=== PATIENT | male | born 1960 | race Caucasian/White ===

== ENCOUNTER 2020-03-27 11:14 | Inpatient (IN) ==
[2020-03-27] MEDS ORDERED: 0.9 % Sodium Chloride 1,000 ML IVC ONE ×2 (11:32→12:48)
[2020-03-27] MEDS ORDERED: VANCOMYCIN IVPB ONE (11:58)
[2020-03-27] MEDS ORDERED: Piperacillin/Tazobactam 3.375 GM in 0.9 % Sodium Chloride Mini Bag 100 ML IVPB ONE (11:58)
[2020-03-27 12:03] LABS: Basophils % 0.3 %; Eosinophils # 0.1 K/mcL (0.0-0.6); Eosinophils % 0.6 %; Hematocrit 29.2 % (37.5-50.1); Hemoglobin 10.1 g/dL (12.9-16.9); Immature Granulocytes % 0.7 % (0-4); Lymphocytes # 3.1 K/mcL (0.6-4.6); Lymphocytes % 30.6 %; Mean Corpuscular HGB Conc 34.6 g/dL (31.6-35.5); Mean Corpuscular Hemoglobin 38.3 pg (28.0-33.3); Mean Corpuscular Volume 110.6 fL (83.0-100.0); Mean Platelet Volume 10.4 fL (9.4-12.4); Monocytes % 6.4 %; Neutrophils # 6.2 K/mcL (1.6-8.9); Platelet Count 109 K/mcL (140-400); Red Blood Count 2.64 M/mcL (4.19-5.50); Red Cell Distribution Width 14.6 % (11.5-14.5); Segmented Neutrophils % 61.4 %; White Blood Count 10.1 K/mcL (4.3-11.1)
[2020-03-27 12:11] LABS: Activated Partial Thrombo Time 47.5 Seconds (26.0-36.0)
[2020-03-27 12:13] LABS: Monocytes # 0.7 K/mcL (0.0-1.3)
[2020-03-27 12:19] LABS: Bilirubin,Urine Negative (Negative); Blood,Urine Small (Negative); Clarity,Urine Ex.Turbid (Clear); Color,Urine Yellow (Yellow); Glucose,Urine (UA) Normal (Normal); Ketones,Urine Negative (Negative); Leukocyte Esterase,Urine Large (Negative); Nitrite,Urine Negative (Negative); Protein,Urine >=300 mg/dL (Neg-Trace); Specific Gravity,Urine 1.011 (1.010-1.025); Urobilinogen,Urine Normal (Normal)
[2020-03-27] MEDS ORDERED: Vancomycin 1,500 MG/265 ML IV.SOLN IVPB ONE (12:19)
[2020-03-27 12:20] LABS: INR 5.7; Prothrombin Time 62.9 Seconds (9.4-12.1)
[2020-03-27 12:21] LABS: Anisocytosis 1+ (Not Present); Macrocytosis Present (Not Present); Platelet Estimate Slight Decrease (Normal)
[2020-03-27 12:24] LABS: Calcium 8.1 mg/dL (8.6-10.3); Magnesium 1.4 mg/dL (1.6-2.6); Potassium 2.8 mEq/L (3.5-5.1)
[2020-03-27 12:26] LABS: WBC,Urine 30-50 per hpf (0-3)
[2020-03-27 12:27] LABS: Bacteria,Urine Present per hpf (None-Few); RBC,Urine Present per hpf (0-3); Squamous Epithelial Cell,Urine Present per hpf (None-Few)
[2020-03-27] MEDS ORDERED: D5% in Water 1,000 ML IVC PRN (14:19)
[2020-03-27] MEDS ORDERED: Dextrose Gel 15 GM/37.5 ML TUBE PO PRN ×2 (14:19)
[2020-03-27] MEDS ORDERED: *HR* Dextrose 50 % in Water (Vial) 50 ML VIAL IVP PRN (14:19)
[2020-03-27] MEDS ORDERED: *HR* HYDROcodone/Acet 5/325 mg TABLET PO PRN (14:19)
[2020-03-27] MEDS ORDERED: Naloxone 0.4 MG/ML INJ IVP PRN (14:19)
[2020-03-27] MEDS ORDERED: Ondansetron 4 MG/2 ML VIAL IVP PRN (14:19)
[2020-03-27] MEDS ORDERED: *HR* OxyCODONE Immed Rel 5 MG TABLET PO PRN (14:19)
[2020-03-27] MEDS ORDERED: Potassium Chloride 40 MEQ, Lidocaine 1% 2 ML in 0.9 % Sodium Chloride 500 ML IVPB ONE (14:21)
[2020-03-27] MEDS: Acetaminophen 325 MG TABLET PO PRN (20:26)
[2020-03-27] MEDS: 0.9 % Sodium Chloride 1,000 ML IVC SCH (20:27)
[2020-03-27] MEDS ORDERED: Insulin DETEMIR 100 UNIT/ML X5UNITS SQ SCH (21:00)
[2020-03-27] MEDS: Nicotine 21 MG PATCH.TD24 TD SCH (21:56)
[2020-03-27] MEDS: Insulin LISPRO 300 UNITS/3 ML VIAL SQ SCH (21:56)
[2020-03-28] MEDS: Piperacillin/Tazobactam 3.375 GM in 0.9 % Sodium Chloride Mini Bag 100 ML IVPB SCH ×5 (04:00→20:52)
[2020-03-28] MEDS: Nicotine 21 MG PATCH.TD24 TD SCH (05:38)
[2020-03-28 05:55] LABS: Basophils % 0.3 %; Eosinophils # 0.1 K/mcL (0.0-0.6); Eosinophils % 0.7 %; Hematocrit 31.7 % (37.5-50.1); Hemoglobin 10.4 g/dL (12.9-16.9); Immature Granulocytes % 0.7 % (0-4); Lymphocytes # 3.9 K/mcL (0.6-4.6); Lymphocytes % 42.2 %; Mean Corpuscular HGB Conc 32.8 g/dL (31.6-35.5); Mean Corpuscular Hemoglobin 37.5 pg (28.0-33.3); Mean Corpuscular Volume 114.4 fL (83.0-100.0); Mean Platelet Volume 10.5 fL (9.4-12.4); Monocytes # 0.4 K/mcL (0.0-1.3); Monocytes % 4.5 %; Neutrophils # 4.8 K/mcL (1.6-8.9); Platelet Count 136 K/mcL (140-400); Red Blood Count 2.77 M/mcL (4.19-5.50); Segmented Neutrophils % 51.6 %; White Blood Count 9.2 K/mcL (4.3-11.1)
[2020-03-28 06:01] LABS: INR 4.4; Prothrombin Time 48.5 Seconds (9.4-12.1)
[2020-03-28 06:10] LABS: Calcium 8.1 mg/dL (8.6-10.3); Phosphorous 2.4 mg/dL (2.7-4.5); Potassium 3.2 mEq/L (3.5-5.1)
[2020-03-28] MEDS: Insulin LISPRO 300 UNITS/3 ML VIAL SQ SCH ×3 (08:07→17:12)
[2020-03-28 08:08] LABS: Macrocytosis Present (Not Present)
[2020-03-28 08:09] LABS: Large Platelets Present (Not Present); Platelet Estimate Normal (Normal); Reactive Lymphocytes Present (Not Present); Toxic Granulation Present (Not Present)
[2020-03-28] MEDS: 0.9 % Sodium Chloride 1,000 ML IVC SCH (09:25)
[2020-03-28] MEDS ORDERED: Ringers Solution, Lactated 1,000 ML IVC ONE (11:24)
[2020-03-28] MEDS: Pregabalin 75 MG CAPSULE PO SCH ×2 (15:12→20:56)
[2020-03-28] MEDS: Methadone Oral Concentrate 50 MG/5 ML UDC PO SCH (15:13)
[2020-03-28] MEDS ORDERED: Piperacillin/Tazobactam 3.375 GM VIAL ONE (20:39)
[2020-03-29 05:28] LABS: Calcium 8.3 mg/dL (8.6-10.3); Potassium 3.7 mEq/L (3.5-5.1)
[2020-03-29 05:34] LABS: Hematocrit 25.6 % (37.5-50.1); Mean Corpuscular HGB Conc 33.2 g/dL (31.6-35.5); Mean Corpuscular Hemoglobin 36.8 pg (28.0-33.3); Mean Corpuscular Volume 110.8 fL (83.0-100.0); Mean Platelet Volume 10.5 fL (9.4-12.4); Platelet Count 107 K/mcL (140-400); Red Blood Count 2.31 M/mcL (4.19-5.50); Red Cell Distribution Width 15.2 % (11.5-14.5); White Blood Count 5.2 K/mcL (4.3-11.1)
[2020-03-29] MEDS: Piperacillin/Tazobactam 3.375 GM in 0.9 % Sodium Chloride Mini Bag 100 ML IVPB SCH ×3 (05:39→20:15)
[2020-03-29 05:54] LABS: Hemoglobin 8.5 g/dL (12.9-16.9)
[2020-03-29] MEDS: Insulin LISPRO 300 UNITS/3 ML VIAL SQ SCH ×3 (08:19→18:10)
[2020-03-29] MEDS ORDERED: Furosemide 40 MG TABLET PO SCH (09:00)
[2020-03-29] MEDS: Pregabalin 75 MG CAPSULE PO SCH ×3 (09:39→20:14)
[2020-03-29] MEDS: Methadone Oral Concentrate 50 MG/5 ML UDC PO SCH (09:39)
[2020-03-29] MEDS: Nicotine 21 MG PATCH.TD24 TD SCH (09:39)
[2020-03-29 09:53] LABS: INR 2.8; Prothrombin Time 31.3 Seconds (9.4-12.1)
[2020-03-29 14:13] LABS: Hematocrit 28.2 % (37.5-50.1); Hemoglobin 9.2 g/dL (12.9-16.9)
[2020-03-29] MEDS ORDERED: Warfarin perPT PO PRN (18:00)
[2020-03-29] MEDS ORDERED: *HR* Warfarin 2 MG TABLET PO ONE (18:00)
[2020-03-30 05:33] LABS: INR 2.5; Prothrombin Time 28.2 Seconds (9.4-12.1)
[2020-03-30 05:41] LABS: BUN/Creatinine Ratio 11 (6-26); Blood Urea Nitrogen 16 mg/dL (8-23); Carbon Dioxide 20 mEq/L (23-29); Chloride 116 mEq/L (98-107); Glucose 54 mg/dL (70-105); Magnesium 1.9 mg/dL (1.6-2.6); Osmolality,Calculated 291 (280-300); Potassium 3.9 mEq/L (3.5-5.1); Sodium 141 mEq/L (136-145); eGFR For African Americans > 60 (> 60); eGFR For Non-African Americans 51 (> 60)
[2020-03-30] MEDS: Piperacillin/Tazobactam 3.375 GM in 0.9 % Sodium Chloride Mini Bag 100 ML IVPB SCH ×3 (06:01→21:45)
[2020-03-30 06:17] LABS: Hematocrit 25.7 % (37.5-50.1); Hemoglobin 8.2 g/dL (12.9-16.9); White Blood Count 5.2 K/mcL (4.3-11.1)
[2020-03-30 06:18] LABS: Mean Corpuscular Volume 116.8 fL (83.0-100.0)
[2020-03-30 06:20] LABS: Mean Corpuscular Hemoglobin 37.3 pg (28.0-33.3)
[2020-03-30 06:21] LABS: Mean Corpuscular HGB Conc 31.9 g/dL (31.6-35.5); Mean Platelet Volume 10.2 fL (9.4-12.4); Platelet Count 118 K/mcL (140-400); Red Cell Distribution Width 15.8 % (11.5-14.5)
[2020-03-30] MEDS: Insulin LISPRO 300 UNITS/3 ML VIAL SQ SCH ×3 (07:58→17:47)
[2020-03-30] MEDS ORDERED: Albumin 25% 25gram/100mL 25 GM/100 ML IV.SOLN IVPB ONE (08:18)
[2020-03-30] MEDS ORDERED: 0.9 % Sodium Chloride 500 ML IVC ONE (08:18)
[2020-03-30] MEDS: Pregabalin 75 MG CAPSULE PO SCH ×3 (09:03→21:45)
[2020-03-30] MEDS: Nicotine 21 MG PATCH.TD24 TD SCH (09:03)
[2020-03-30 09:50] LABS: Estimated Average Glucose 117 mg/dl
[2020-03-30] MEDS: Methadone Oral Concentrate 50 MG/5 ML UDC PO SCH (10:00)
[2020-03-30 10:07] LABS: % Iron Saturation 45 % (20-55); Creatine Kinase 152 Units/L (30-223); Iron 78 mcg/dL (65-175); Transferrin 123 mg/dL (203-362)
[2020-03-30 10:25] LABS: Ferritin 173 ng/mL (20-250)
[2020-03-30] MEDS ORDERED: Cyanocobalamin (B-12) 1,000 MCG/ML VIAL SQ ONE (11:24)
[2020-03-30] MEDS: Folic Acid 1 MG TABLET PO SCH (12:39)
[2020-03-30 12:54] LABS: Bilirubin,Urine Negative (Negative); Blood,Urine Moderate (Negative); Clarity,Urine Cloudy (Clear); Color,Urine Yellow (Yellow); Glucose,Urine (UA) Normal (Normal); Ketones,Urine Negative (Negative); Leukocyte Esterase,Urine Large (Negative); Nitrite,Urine Negative (Negative); Protein,Urine >=300 mg/dL (Neg-Trace); Specific Gravity,Urine 1.025 (1.010-1.025); Urobilinogen,Urine Normal (Normal)
[2020-03-30 13:03] LABS: Bacteria,Urine Moderate per hpf (None-Few); WBC,Urine TNTC per hpf (0-3)
[2020-03-30 13:04] LABS: Squamous Epithelial Cell,Urine Few per hpf (None-Few)
[2020-03-30 13:24] LABS: Potassium,Urine 22.1 mEq/L; Protein/Creatinine Ratio,Urine 2.08 mg/mg (0.00-0.20); Sodium, Urine 53.3 mEq/L
[2020-03-30] MEDS ORDERED: 0.9 % Sodium Chloride 1,000 ML IV ONE (16:07)
[2020-03-30] MEDS ORDERED: *HR* Warfarin 2 MG TABLET PO ONE (18:00)
[2020-03-31] MEDS: Hydrocortisone Sodium Succ 100 MG/2 ML VIAL IVP ONE ×2 (01:56→10:12)
[2020-03-31] MEDS: 0.9 % Sodium Chloride 500 ML IVC SCH ×5 (03:54→23:37)
[2020-03-31] MEDS: Piperacillin/Tazobactam 3.375 GM in 0.9 % Sodium Chloride Mini Bag 100 ML IVPB SCH ×3 (05:16→19:46)
[2020-03-31 06:05] LABS: INR 2.2; Prothrombin Time 24.4 Seconds (9.4-12.1)
[2020-03-31 06:11] LABS: Hematocrit 26.3 % (37.5-50.1); Hemoglobin 8.7 g/dL (12.9-16.9); Mean Corpuscular HGB Conc 33.1 g/dL (31.6-35.5); Mean Corpuscular Volume 114.8 fL (83.0-100.0); Mean Platelet Volume 10.2 fL (9.4-12.4); Platelet Count 122 K/mcL (140-400); Red Blood Count 2.29 M/mcL (4.19-5.50); Red Cell Distribution Width 15.5 % (11.5-14.5); White Blood Count 6.1 K/mcL (4.3-11.1)
[2020-03-31 06:36] LABS: BUN/Creatinine Ratio 11 (6-26); Blood Urea Nitrogen 14 mg/dL (8-23); Calcium 8.2 mg/dL (8.6-10.3); Carbon Dioxide 20 mEq/L (23-29); Chloride 114 mEq/L (98-107); Glucose 120 mg/dL (70-105); Osmolality,Calculated 290 (280-300); Potassium 4.4 mEq/L (3.5-5.1); Sodium 139 mEq/L (136-145); eGFR For African Americans > 60 (> 60); eGFR For Non-African Americans 56 (> 60)
[2020-03-31] MEDS ORDERED: Hydrocortisone Sodium Succ 100 MG/2 ML VIAL IVP ONE (07:17)
[2020-03-31] MEDS: Pregabalin 75 MG CAPSULE PO SCH ×3 (08:36→19:46)
[2020-03-31] MEDS: Insulin LISPRO 300 UNITS/3 ML VIAL SQ SCH ×3 (10:09→17:08)
[2020-03-31] MEDS: Nicotine 21 MG PATCH.TD24 TD SCH (10:10)
[2020-03-31] MEDS: predniSONE 20 MG TABLET PO SCH (10:11)
[2020-03-31] MEDS: Folic Acid 1 MG TABLET PO SCH (10:12)
[2020-03-31 10:47] LABS: Thyroid Stimulating Hormone 2.333 mcIU/mL (0.340-5.600)
[2020-03-31] MEDS: Cyanocobalamin (B-12) 1,000 MCG/ML VIAL SQ SCH (12:45)
[2020-03-31] MEDS: Acetaminophen 325 MG TABLET PO PRN (12:58)
[2020-03-31] MEDS: Methadone Oral Concentrate 50 MG/5 ML UDC PO SCH (16:11)
[2020-03-31] MEDS ORDERED: *HR* Warfarin 2 MG TABLET PO ONE (18:04)
[2020-04-01] MEDS: 0.9 % Sodium Chloride 500 ML IVC SCH ×2 (04:35→10:02)
[2020-04-01] MEDS: Piperacillin/Tazobactam 3.375 GM in 0.9 % Sodium Chloride Mini Bag 100 ML IVPB SCH ×2 (04:35→12:33)
[2020-04-01 06:12] LABS: Hematocrit 25.7 % (37.5-50.1); Hemoglobin 8.6 g/dL (12.9-16.9); Mean Corpuscular HGB Conc 33.5 g/dL (31.6-35.5); Mean Corpuscular Hemoglobin 37.9 pg (28.0-33.3); Mean Corpuscular Volume 113.2 fL (83.0-100.0); Mean Platelet Volume 10.1 fL (9.4-12.4); Platelet Count 142 K/mcL (140-400); Red Blood Count 2.27 M/mcL (4.19-5.50); Red Cell Distribution Width 15.1 % (11.5-14.5); White Blood Count 8.1 K/mcL (4.3-11.1)
[2020-04-01 06:14] LABS: INR 2.2
[2020-04-01 06:29] LABS: BUN/Creatinine Ratio 13 (6-26); Blood Urea Nitrogen 16 mg/dL (8-23); Carbon Dioxide 22 mEq/L (23-29); Chloride 116 mEq/L (98-107); Glucose 107 mg/dL (70-105); Osmolality,Calculated 294 (280-300); Sodium 141 mEq/L (136-145); eGFR For African Americans > 60 (> 60); eGFR For Non-African Americans > 60 (> 60)
[2020-04-01] MEDS: Cyanocobalamin (B-12) 1,000 MCG/ML VIAL SQ SCH (10:02)
[2020-04-01] MEDS: Pregabalin 75 MG CAPSULE PO SCH ×2 (10:02→15:02)
[2020-04-01] MEDS: predniSONE 20 MG TABLET PO SCH (10:03)
[2020-04-01] MEDS: Folic Acid 1 MG TABLET PO SCH (10:03)
[2020-04-01] MEDS: Methadone Oral Concentrate 50 MG/5 ML UDC PO SCH (10:04)
[2020-04-01] MEDS: Nicotine 21 MG PATCH.TD24 TD SCH (10:04)
[2020-04-01] MEDS: Insulin LISPRO 300 UNITS/3 ML VIAL SQ SCH ×2 (10:13→12:34)
[2020-04-01 10:29] VITALS: BP 108/71
[2020-04-01] MEDS: Acetaminophen 325 MG TABLET PO PRN (11:30)
[2020-04-01] MEDS ORDERED: *HR* Warfarin 2 MG TABLET PO ONE (18:00)
== END 2020-04-01 17:54 | disposition home health service (06) | DRG 872 ==
LOC: EMEROOARM 11:14 → 3ANU 11:14 → SUATTDRO 17:11 → 3ANU 17:54
PROVIDERS: ADMIT Internal Medicine; ATTEND Internal Medicine

== ENCOUNTER 2020-09-23 10:17 | Inpatient (IN) ==
[2020-09-23] MEDS ORDERED: 0.9 % Sodium Chloride 1,000 ML ONE (11:00)
[2020-09-23] MEDS ORDERED: Ondansetron 4 MG/2 ML VIAL IVP ONE (11:01)
[2020-09-23] MEDS ORDERED: 0.9 % Sodium Chloride 1,000 ML IVC ONE (11:01)
[2020-09-23] MEDS ORDERED: Isovue-370 500 ML BOTTLE IVP ONE (11:13)
[2020-09-23 11:25] LABS: Basophils % 0.1 %; Eosinophils % 0.2 %; Hematocrit 44.4 % (37.5-50.1); Hemoglobin 15.1 g/dL (12.9-16.9); Immature Granulocytes % 0.4 % (0-4); Lymphocytes # 2.4 K/mcL (0.6-4.6); Lymphocytes % 17.3 %; Mean Corpuscular Hemoglobin 29.4 pg (28.0-33.3); Mean Corpuscular Volume 86.5 fL (83.0-100.0); Mean Platelet Volume 10.5 fL (9.4-12.4); Monocytes % 7.4 %; Neutrophils # 10.2 K/mcL (1.6-8.9); Platelet Count 257 K/mcL (140-400); Red Blood Count 5.13 M/mcL (4.19-5.50); Red Cell Distribution Width 13.3 % (11.5-14.5); Segmented Neutrophils % 74.6 %; White Blood Count 13.7 K/mcL (4.3-11.1)
[2020-09-23 12:02] LABS: Albumin 4.1 g/dL (3.5-5.7); Albumin/Globulin Ratio 0.9 (1.1-2.2); Bilirubin,Direct 0.1 mg/dL (0.0-0.2); Bilirubin,Indirect 0.5 mg/dL (0.0-1.0); Bilirubin,Total 0.6 mg/dL (0.3-1.0); Calcium 8.8 mg/dL (8.6-10.3); Globulin 4.6 g/dL (2.4-3.5); Potassium 3.1 mEq/L (3.5-5.1); Total Protein 8.7 g/dL (6.4-8.9)
[2020-09-23 12:17] LABS: Troponin I 0.04 ng/mL (< 0.04)
[2020-09-23] MEDS ORDERED: 0.9 % Sodium Chloride 1,000 ML IVC SCH (12:30)
[2020-09-23] MEDS ORDERED: *HR* Promethazine 25 MG/ML VIAL IM ONE (12:43)
[2020-09-23] MEDS ORDERED: Aspirin 81 MG TAB.CHEW PO ONE (13:54)
[2020-09-23 15:43] LABS: Bilirubin,Urine Negative (Negative); Blood,Urine Small (Negative); Clarity,Urine Ex.Turbid (Clear); Color,Urine Yellow (Yellow); Glucose,Urine (UA) Normal (Normal); Ketones,Urine Negative (Negative); Leukocyte Esterase,Urine Large (Negative); Nitrite,Urine Negative (Negative); PH,Urine 5.5 pH Units (5.0-8.0); Protein,Urine 30 mg/dL (Neg-Trace); Specific Gravity,Urine 1.014 (1.010-1.025); Urobilinogen,Urine Normal (Normal)
[2020-09-23 16:10] LABS: Bacteria,Urine Present per hpf (None-Few); RBC,Urine Present per hpf (0-3); Squamous Epithelial Cell,Urine Present per hpf (None-Few); WBC,Urine TNTC per hpf (0-3)
[2020-09-23] MEDS ORDERED: Naloxone 0.4 MG/ML INJ IVP PRN (16:41)
[2020-09-23] MEDS ORDERED: cefTRIAXone 1,000 MG in Water for inj. (sterile) 10 ML IVP ONE (16:57)
[2020-09-23] MEDS ORDERED: Dextrose Gel 15 GM/37.5 ML TUBE PO PRN ×2 (17:44)
[2020-09-23] MEDS ORDERED: D5% in Water 1,000 ML IVC PRN (17:44)
[2020-09-23] MEDS: Nicotine 14 MG PATCH.TD24 TD SCH (18:30)
[2020-09-23] MEDS: Pantoprazole 40 MG VIAL IVP SCH (18:30)
[2020-09-23] MEDS: Ondansetron 4 MG/2 ML VIAL IVP PRN (18:30)
[2020-09-23] MEDS: 0.9 % Sodium Chloride 1,000 ML IVC SCH (18:31)
[2020-09-23 18:32] LABS: INR 3.2; Prothrombin Time 35.4 Seconds (9.4-12.1)
[2020-09-23 18:42] LABS: Magnesium 2.3 mg/dL (1.6-2.6); Phosphorous 6.3 mg/dL (2.7-4.5)
[2020-09-23] MEDS: Insulin LISPRO 300 UNITS/3 ML VIAL SUBQ SCH (21:26)
[2020-09-24] MEDS: Piperacillin/Tazobactam 3.375 GM in 0.9 % Sodium Chloride Mini Bag 100 ML IVPB SCH ×2 (05:41→17:04)
[2020-09-24] MEDS: Pantoprazole 40 MG VIAL IVP SCH ×2 (05:42→17:03)
[2020-09-24] MEDS: 0.9 % Sodium Chloride 1,000 ML IVC SCH ×3 (05:42→22:36)
[2020-09-24 05:46] LABS: Basophils % 0.3 %; Eosinophils # 0.1 K/mcL (0.0-0.6); Hematocrit 35.6 % (37.5-50.1); Immature Granulocytes % 0.3 % (0-4); Lymphocytes # 3.8 K/mcL (0.6-4.6); Lymphocytes % 36.5 %; Mean Corpuscular HGB Conc 33.1 g/dL (31.6-35.5); Mean Corpuscular Hemoglobin 30.3 pg (28.0-33.3); Mean Corpuscular Volume 91.3 fL (83.0-100.0); Mean Platelet Volume 10.9 fL (9.4-12.4); Monocytes # 0.8 K/mcL (0.0-1.3); Monocytes % 7.8 %; Neutrophils # 5.6 K/mcL (1.6-8.9); Platelet Count 172 K/mcL (140-400); Red Cell Distribution Width 13.6 % (11.5-14.5); Segmented Neutrophils % 54.1 %; White Blood Count 10.3 K/mcL (4.3-11.1)
[2020-09-24 06:01] LABS: Albumin 3.4 g/dL (3.5-5.7); Bilirubin,Total 0.4 mg/dL (0.3-1.0); Calcium 7.9 mg/dL (8.6-10.3); Globulin 3.3 g/dL (2.4-3.5); Potassium 2.5 mEq/L (3.5-5.1); Total Protein 6.7 g/dL (6.4-8.9)
[2020-09-24 06:30] LABS: Hemoglobin 11.8 g/dL (12.9-16.9)
[2020-09-24] MEDS ORDERED: 0.9 % Sodium Chloride 500 ML IVC ONE (08:20)
[2020-09-24] MEDS: Cyanocobalamin (B-12) 1,000 MCG TABLET PO SCH (08:34)
[2020-09-24] MEDS: Folic Acid 1 MG TABLET PO SCH (08:35)
[2020-09-24] MEDS: Insulin LISPRO 300 UNITS/3 ML VIAL SUBQ SCH ×4 (08:35→21:04)
[2020-09-24] MEDS: Nicotine 14 MG PATCH.TD24 TD SCH (08:38)
[2020-09-24] MEDS ORDERED: Methadone Oral Concentrate 50 MG/5 ML UDC PO SCH (09:00)
[2020-09-24] MEDS ORDERED: Potassium Chloride 40 MEQ, Lidocaine 1% 2 ML in 0.9 % Sodium Chloride 500 ML IVPB ONE (09:25)
[2020-09-24] MEDS ORDERED: Morphine Sulfate 2 MG/ML SYRINGE IVP ONE (11:21)
[2020-09-24] MEDS ORDERED: Perflutren Lipid Microsphere 1.3 ML in 0.9 % Sodium Chloride 8.7 ML IVP PRN (13:43)
[2020-09-24 15:55] LABS: Calcium 8.1 mg/dL (8.6-10.3); Potassium 3.4 mEq/L (3.5-5.1)
[2020-09-24 17:31] LABS: INR 3.4; Prothrombin Time 38.1 Seconds (9.4-12.1)
[2020-09-24] MEDS: Ondansetron 4 MG/2 ML VIAL IVP PRN (19:37)
[2020-09-24] MEDS: *HR* Dextrose 50 % in Water (Vial) 50 ML VIAL IVP PRN (21:08)
[2020-09-24 21:53] LABS: Sodium, Urine 74.4 mEq/L
[2020-09-25 02:45] LABS: Hemoglobin 11.8 g/dL (12.9-16.9); Mean Corpuscular HGB Conc 31.9 g/dL (31.6-35.5); Mean Corpuscular Hemoglobin 29.7 pg (28.0-33.3); Mean Corpuscular Volume 93.2 fL (83.0-100.0); Mean Platelet Volume 10.8 fL (9.4-12.4); Platelet Count 156 K/mcL (140-400); Red Blood Count 3.97 M/mcL (4.19-5.50); Red Cell Distribution Width 13.4 % (11.5-14.5); White Blood Count 8.5 K/mcL (4.3-11.1)
[2020-09-25 02:51] LABS: INR 3.3; Prothrombin Time 36.6 Seconds (9.4-12.1)
[2020-09-25 03:03] LABS: Albumin 3.4 g/dL (3.5-5.7); Bilirubin,Total 0.5 mg/dL (0.3-1.0); Calcium 8.2 mg/dL (8.6-10.3); Globulin 3.5 g/dL (2.4-3.5); Potassium 3.4 mEq/L (3.5-5.1); Total Protein 6.9 g/dL (6.4-8.9)
[2020-09-25] MEDS: *HR* Dextrose 50 % in Water (Vial) 50 ML VIAL IVP PRN (03:39)
[2020-09-25] MEDS: Pantoprazole 40 MG VIAL IVP SCH ×2 (05:23→21:30)
[2020-09-25] MEDS: Piperacillin/Tazobactam 3.375 GM in 0.9 % Sodium Chloride Mini Bag 100 ML IVPB SCH ×2 (05:23→21:33)
[2020-09-25] MEDS: 0.9 % Sodium Chloride 1,000 ML IVC SCH ×3 (05:26→23:41)
[2020-09-25] MEDS: Insulin LISPRO 300 UNITS/3 ML VIAL SUBQ SCH ×4 (07:42→21:32)
[2020-09-25] MEDS: Nicotine 14 MG PATCH.TD24 TD SCH (07:46)
[2020-09-25] MEDS: Folic Acid 1 MG TABLET PO SCH (07:47)
[2020-09-25] MEDS: Cyanocobalamin (B-12) 1,000 MCG TABLET PO SCH (07:47)
[2020-09-25] MEDS: Ondansetron 4 MG/2 ML VIAL IVP PRN (09:24)
[2020-09-25 09:53] LABS: INR 3.2; Prothrombin Time 36.3 Seconds (9.4-12.1)
[2020-09-25] MEDS ORDERED: 0.9 % Sodium Chloride 250 ML ONE ×2 (10:51→12:20)
[2020-09-25 15:13] LABS: INR 2.4; Prothrombin Time 26.6 Seconds (9.4-12.1)
[2020-09-25] MEDS ORDERED: *HR* Propofol 200 MG/20 ML VIAL IVP ONE (15:30)
[2020-09-25] MEDS ORDERED: Lidocaine HCL 4 ML Topical Solution (Laryng-O-Jet Kit Sterile Pak) TP ONE (15:30)
[2020-09-25] MEDS ORDERED: *HR* Rocuronium Bromide 50 MG/5 ML VIAL ONE ×2 (15:30→17:57)
[2020-09-25] MEDS ORDERED: *HR* Midazolam HCl 2 MG/2 ML VIAL ONE ×2 (15:30→19:03)
[2020-09-25] MEDS ORDERED: Ondansetron 4 MG/2 ML VIAL ONE ×2 (15:30→18:05)
[2020-09-25] MEDS ORDERED: Lidocaine -MPF 2% 2 ML VIAL ONE (15:30)
[2020-09-25] MEDS ORDERED: *HR* FentaNYL (PF) 100 MCG/2 ML VIAL ONE ×2 (15:30→16:51)
[2020-09-25] MEDS ORDERED: *HR* Succinylcholine 200 MG/10 ML VIAL IVP ONE (15:30)
[2020-09-25] MEDS: Methadone Oral Concentrate 50 MG/5 ML UDC PO SCH ×2 (15:36→20:28)
[2020-09-25] MEDS ORDERED: CefOXitin 1,000 MG VIAL ONE ×2 (15:38→17:30)
[2020-09-25] MEDS ORDERED: Piperacillin/Tazobactam 3.375 GM in 0.9 % Sodium Chloride Mini Bag 100 ML IVPB SCH (16:00)
[2020-09-25] MEDS ORDERED: Hydrocortisone Sodium Succ 100 MG/2 ML VIAL ONE (16:17)
[2020-09-25] MEDS ORDERED: Isovue-300 50ML VIAL ONE (16:28)
[2020-09-25] MEDS ORDERED: *HR* Phenylephrine 10 MG/ML VIAL ONE (16:45)
[2020-09-25] MEDS ORDERED: CefOXitin 2,000 MG VIAL ONE (16:49)
[2020-09-25] MEDS ORDERED: Artificial Tears SOLN 15 ML BOTTLE BOTH EYES PRN (19:27)
[2020-09-25] MEDS: FentaNYL (PF) 1,000 MCG/100 ML IV.SOLN IVC SCH (20:00)
[2020-09-25 20:33] LABS: Hematocrit 34.9 % (37.5-50.1); Hemoglobin 11.3 g/dL (12.9-16.9)
[2020-09-25 20:39] LABS: VBG Ionized Calcium 1.03 mmol/L (1.15-1.35)
[2020-09-25 20:52] LABS: Calcium 8.2 mg/dL (8.6-10.3); Magnesium 1.8 mg/dL (1.6-2.6); Phosphorous 1.6 mg/dL (2.7-4.5); Potassium 3.6 mEq/L (3.5-5.1)
[2020-09-25 21:20] LABS: ABG Base Excess -1 mEq/L (-2 to 3); ABG HCO3 25 mEq/L (21-27); ABG Oxygen Saturation 98 % (95-98); ABG PCO2 46 mmHg (35-45); ABG PH 7.34 pH Units (7.32-7.45); ABG PO2 115 mmHg (85-104); ABG TCO2 27 mEq/L (20-26); Blood Gas Modality ASSIST CONTROL; Blood Gas VT 500 cc
[2020-09-25] MEDS: Chlorhexidine Rinse 15 ML MOUTHWASH MM SCH (21:28)
[2020-09-25] MEDS: Calcium Gluconate 1gm/50mL 1 GM/50 ML BAG IVPB SCH ×2 (21:29→22:38)
[2020-09-25] MEDS: Ringers Solution, Lactated 1,000 ML IVC SCH (21:32)
[2020-09-25] MEDS: Artificial Tears SOLN 15 ML BOTTLE BOTH EYES SCH ×2 (21:32→23:41)
[2020-09-25 22:03] LABS: INR 1.9; Prothrombin Time 22.1 Seconds (9.4-12.1)
[2020-09-25] MEDS: Dexmedetomidine HCl 400 MCG/100 ML MLS IVC SCH (22:39)
[2020-09-26] MEDS: FentaNYL (PF) 1,000 MCG/100 ML IV.SOLN IVC SCH (00:09)
[2020-09-26 04:05] LABS: Basophils % 0.3 %; Eosinophils % 0.2 %; Hematocrit 27.9 % (37.5-50.1); Immature Granulocytes % 0.3 % (0-4); Lymphocytes # 1.2 K/mcL (0.6-4.6); Lymphocytes % 18.1 %; Mean Corpuscular HGB Conc 33.7 g/dL (31.6-35.5); Mean Corpuscular Hemoglobin 30.8 pg (28.0-33.3); Mean Corpuscular Volume 91.5 fL (83.0-100.0); Mean Platelet Volume 10.9 fL (9.4-12.4); Monocytes # 0.4 K/mcL (0.0-1.3); Monocytes % 5.7 %; Neutrophils # 4.9 K/mcL (1.6-8.9); Platelet Count 126 K/mcL (140-400); Red Blood Count 3.05 M/mcL (4.19-5.50); Red Cell Distribution Width 13.9 % (11.5-14.5); Segmented Neutrophils % 75.4 %; White Blood Count 6.5 K/mcL (4.3-11.1)
[2020-09-26 04:06] LABS: Hemoglobin 9.4 g/dL (12.9-16.9)
[2020-09-26 04:09] LABS: VBG Ionized Calcium 0.94 mmol/L (1.15-1.35)
[2020-09-26 04:11] LABS: Prothrombin Time 22.5 Seconds (9.4-12.1)
[2020-09-26 04:27] LABS: BUN/Creatinine Ratio 11 (6-26); Blood Urea Nitrogen 16 mg/dL (8-23); Calcium 7.9 mg/dL (8.6-10.3); Carbon Dioxide 27 mEq/L (23-29); Chloride 101 mEq/L (98-107); Glucose 150 mg/dL (70-105); Magnesium 1.9 mg/dL (1.6-2.6); Osmolality,Calculated 294 (280-300); Phosphorous 3.6 mg/dL (2.7-4.5); Potassium 4.1 mEq/L (3.5-5.1); Sodium 140 mEq/L (136-145); eGFR For African Americans > 60 (> 60); eGFR For Non-African Americans 51 (> 60)
[2020-09-26 05:08] LABS: ABG Base Excess 2 mEq/L (-2 to 3); ABG HCO3 27 mEq/L (21-27); ABG Oxygen Saturation 95 % (95-98); ABG PCO2 41 mmHg (35-45); ABG PH 7.42 pH Units (7.32-7.45); ABG PO2 74 mmHg (85-104); ABG TCO2 28 mEq/L (20-26); Blood Gas Modality ASSIST CONTROL; Blood Gas VT 450 cc
[2020-09-26] MEDS: Artificial Tears SOLN 15 ML BOTTLE BOTH EYES SCH ×5 (05:14→20:25)
[2020-09-26] MEDS: Piperacillin/Tazobactam 3.375 GM in 0.9 % Sodium Chloride Mini Bag 100 ML IVPB SCH ×3 (05:14→20:25)
[2020-09-26] MEDS: FentaNYL (PF) 2,500 MCG/50 ML IV.SOLN IVC SCH ×2 (05:15→14:05)
[2020-09-26] MEDS: Ringers Solution, Lactated 1,000 ML IVC SCH ×2 (05:16→08:20)
[2020-09-26] MEDS: Pantoprazole 40 MG VIAL IVP SCH ×2 (05:16→17:00)
[2020-09-26] MEDS: Calcium Gluconate 1gm/50mL 1 GM/50 ML BAG IVPB SCH ×2 (06:10→06:44)
[2020-09-26] MEDS ORDERED: 0.9 % Sodium Chloride 500 ML ONE (07:39)
[2020-09-26] MEDS: Insulin LISPRO 300 UNITS/3 ML VIAL SUBQ SCH ×4 (08:33→19:42)
[2020-09-26] MEDS: Folic Acid 1 MG TABLET PO SCH (08:34)
[2020-09-26] MEDS: Cyanocobalamin (B-12) 1,000 MCG TABLET PO SCH (08:34)
[2020-09-26] MEDS: Methadone Oral Concentrate 50 MG/5 ML UDC PO SCH (08:34)
[2020-09-26] MEDS: Chlorhexidine Rinse 15 ML MOUTHWASH MM SCH ×2 (08:47→20:25)
[2020-09-26] MEDS: Nicotine 14 MG PATCH.TD24 TD SCH (08:47)
[2020-09-26] MEDS ORDERED: Perflutren Lipid Microsphere 1.3 ML in 0.9 % Sodium Chloride 8.7 ML IVP PRN (09:47)
[2020-09-26] MEDS ORDERED: D10% in Water 500 ML IVC PRN (10:30)
[2020-09-26 10:33] LABS: Alanine Aminotransferase 18 Units/L (7-52); Albumin/Globulin Ratio 1.1 (1.1-2.2); Alkaline Phosphatase 41 Units/L (34-104); Aspartate Amino Transferase 19 Units/L (13-39); Bilirubin,Direct 0.2 mg/dL (0.0-0.2); Bilirubin,Indirect 0.5 mg/dL (0.0-1.0); Bilirubin,Total 0.7 mg/dL (0.3-1.0); Globulin 2.8 g/dL (2.4-3.5); Total Protein 5.8 g/dL (6.4-8.9)
[2020-09-26 13:36] LABS: VBG Ionized Calcium 1.18 mmol/L (1.15-1.35)
[2020-09-26 13:51] LABS: BUN/Creatinine Ratio 11 (6-26); Blood Urea Nitrogen 14 mg/dL (8-23); Calcium 8.5 mg/dL (8.6-10.3); Carbon Dioxide 29 mEq/L (23-29); Chloride 104 mEq/L (98-107); Glucose 131 mg/dL (70-105); Magnesium 2.3 mg/dL (1.6-2.6); Osmolality,Calculated 294 (280-300); Phosphorous 1.8 mg/dL (2.7-4.5); Potassium 3.4 mEq/L (3.5-5.1); Sodium 141 mEq/L (136-145); eGFR For African Americans > 60 (> 60); eGFR For Non-African Americans 55 (> 60)
[2020-09-26] MEDS ORDERED: Potassium Phosphate 44 MEQ in 0.9 % Sodium Chloride 250 ML IVPB ONE (14:50)
[2020-09-26] MEDS ORDERED: Clinimix E 5%-15% SOLUTION 2,000 ML with MVI, adult with vitamin K 10 ML IVC SCH (17:00)
[2020-09-26] MEDS: Dexmedetomidine HCl 400 MCG/100 ML MLS IVC SCH (17:00)
[2020-09-26] MEDS: 0.9 % Sodium Chloride 1,000 ML IVC SCH (20:56)
[2020-09-27] MEDS: Artificial Tears SOLN 15 ML BOTTLE BOTH EYES SCH ×3 (00:55→08:18)
[2020-09-27] MEDS: Insulin LISPRO 300 UNITS/3 ML VIAL SUBQ SCH ×6 (00:55→20:04)
[2020-09-27] MEDS: Piperacillin/Tazobactam 3.375 GM in 0.9 % Sodium Chloride Mini Bag 100 ML IVPB SCH ×3 (04:32→20:03)
[2020-09-27] MEDS: FentaNYL (PF) 2,500 MCG/50 ML IV.SOLN IVC SCH (04:35)
[2020-09-27 04:38] LABS: ABG Base Excess 3 mEq/L (-2 to 3); ABG HCO3 28 mEq/L (21-27); ABG Oxygen Saturation 94 % (95-98); ABG PCO2 44 mmHg (35-45); ABG PH 7.41 pH Units (7.32-7.45); ABG PO2 69 mmHg (85-104); ABG TCO2 29 mEq/L (20-26); Blood Gas Modality ASSIST CONTROL; Blood Gas VT 450 cc
[2020-09-27 04:47] LABS: Basophils % 0.4 %; Eosinophils # 0.1 K/mcL (0.0-0.6); Hematocrit 25.4 % (37.5-50.1); Hemoglobin 8.2 g/dL (12.9-16.9); Immature Granulocytes % 0.4 % (0-4); Lymphocytes # 1.6 K/mcL (0.6-4.6); Lymphocytes % 22.6 %; Mean Corpuscular HGB Conc 32.3 g/dL (31.6-35.5); Mean Corpuscular Hemoglobin 29.4 pg (28.0-33.3); Mean Platelet Volume 10.6 fL (9.4-12.4); Monocytes # 0.7 K/mcL (0.0-1.3); Monocytes % 9.2 %; Neutrophils # 4.7 K/mcL (1.6-8.9); Platelet Count 119 K/mcL (140-400); Red Blood Count 2.79 M/mcL (4.19-5.50); Segmented Neutrophils % 66.4 %; White Blood Count 7.1 K/mcL (4.3-11.1)
[2020-09-27 05:05] LABS: Alanine Aminotransferase 13 Units/L (7-52); Albumin 2.7 g/dL (3.5-5.7); Alkaline Phosphatase 39 Units/L (34-104); Aspartate Amino Transferase 12 Units/L (13-39); BUN/Creatinine Ratio 11 (6-26); Bilirubin,Total 0.5 mg/dL (0.3-1.0); Blood Urea Nitrogen 14 mg/dL (8-23); Calcium 7.9 mg/dL (8.6-10.3); Carbon Dioxide 31 mEq/L (23-29); Chloride 106 mEq/L (98-107); Globulin 2.8 g/dL (2.4-3.5); Glucose 159 mg/dL (70-105); Magnesium 2.2 mg/dL (1.6-2.6); Osmolality,Calculated 298 (280-300); Phosphorous 2.6 mg/dL (2.7-4.5); Potassium 3.4 mEq/L (3.5-5.1); Sodium 142 mEq/L (136-145); Total Protein 5.5 g/dL (6.4-8.9); Triglycerides 183 mg/dL (< 150); eGFR For African Americans > 60 (> 60); eGFR For Non-African Americans 56 (> 60)
[2020-09-27] MEDS: Pantoprazole 40 MG VIAL IVP SCH ×2 (05:06→16:54)
[2020-09-27 05:09] LABS: INR 2.1; Prothrombin Time 23.8 Seconds (9.4-12.1)
[2020-09-27] MEDS ORDERED: Potassium Phosphate 44 MEQ in 0.9 % Sodium Chloride 250 ML IVPB ONE (06:28)
[2020-09-27] MEDS ORDERED: Furosemide 40 MG/4 ML VIAL IVP ONE (07:26)
[2020-09-27] MEDS: Nicotine 14 MG PATCH.TD24 TD SCH (08:18)
[2020-09-27] MEDS: Cyanocobalamin (B-12) 1,000 MCG TABLET PO SCH (08:20)
[2020-09-27] MEDS: Folic Acid 1 MG TABLET PO SCH (08:20)
[2020-09-27] MEDS: Methadone Oral Concentrate 50 MG/5 ML UDC PO SCH (08:20)
[2020-09-27] MEDS: Chlorhexidine Rinse 15 ML MOUTHWASH MM SCH (08:20)
[2020-09-27] MEDS ORDERED: Albumin 25% 25gram/100mL 25 GM/100 ML IV.SOLN IVPB ONE (09:57)
[2020-09-27] MEDS ORDERED: Chloraseptic Spray 177 ML BOTTLE MM PRN (11:32)
[2020-09-27] MEDS: *HR* HYDROmorphone 2 MG/ML SYRINGE IVP PRN ×4 (15:52→23:03)
[2020-09-27] MEDS: Dexmedetomidine HCl 400 MCG/100 ML MLS IVC SCH (15:55)
[2020-09-27 15:57] LABS: Hematocrit 23.1 % (37.5-50.1); Hemoglobin 7.5 g/dL (12.9-16.9)
[2020-09-27 16:16] LABS: BUN/Creatinine Ratio 12 (6-26); Blood Urea Nitrogen 16 mg/dL (8-23); Calcium 8.1 mg/dL (8.6-10.3); Carbon Dioxide 32 mEq/L (23-29); Chloride 106 mEq/L (98-107); Glucose 208 mg/dL (70-105); Osmolality,Calculated 303 (280-300); Potassium 3.3 mEq/L (3.5-5.1); Sodium 143 mEq/L (136-145); eGFR For African Americans > 60 (> 60); eGFR For Non-African Americans 55 (> 60)
[2020-09-27] MEDS ORDERED: Clinimix E 5%-15% SOLUTION 2,000 ML with MVI, adult with vitamin K 10 ML IVC SCH (17:00)
[2020-09-28] MEDS: Insulin LISPRO 300 UNITS/3 ML VIAL SUBQ SCH ×7 (00:09→23:49)
[2020-09-28] MEDS: *HR* HYDROmorphone 2 MG/ML SYRINGE IVP PRN ×6 (01:03→20:37)
[2020-09-28 03:24] LABS: VBG Ionized Calcium 1.11 mmol/L (1.15-1.35)
[2020-09-28 03:28] LABS: Basophils % 0.5 %; Eosinophils # 0.1 K/mcL (0.0-0.6); Eosinophils % 2.1 %; Hematocrit 25.9 % (37.5-50.1); Hemoglobin 8.6 g/dL (12.9-16.9); Immature Granulocytes % 0.3 % (0-4); Lymphocytes # 1.6 K/mcL (0.6-4.6); Lymphocytes % 25.5 %; Mean Corpuscular HGB Conc 33.2 g/dL (31.6-35.5); Mean Corpuscular Hemoglobin 30.3 pg (28.0-33.3); Mean Corpuscular Volume 91.2 fL (83.0-100.0); Mean Platelet Volume 10.7 fL (9.4-12.4); Monocytes # 0.4 K/mcL (0.0-1.3); Monocytes % 7.2 %; Neutrophils # 3.9 K/mcL (1.6-8.9); Platelet Count 118 K/mcL (140-400); Red Blood Count 2.84 M/mcL (4.19-5.50); Red Cell Distribution Width 13.8 % (11.5-14.5); Segmented Neutrophils % 64.4 %; White Blood Count 6.1 K/mcL (4.3-11.1)
[2020-09-28 03:35] LABS: INR 1.5; Prothrombin Time 17.3 Seconds (9.4-12.1)
[2020-09-28 03:38] LABS: Activated Partial Thrombo Time 27.6 Seconds (26.0-36.0)
[2020-09-28 03:41] LABS: BUN/Creatinine Ratio 12 (6-26); Blood Urea Nitrogen 14 mg/dL (8-23); Calcium 7.8 mg/dL (8.6-10.3); Carbon Dioxide 29 mEq/L (23-29); Chloride 108 mEq/L (98-107); Glucose 176 mg/dL (70-105); Magnesium 1.8 mg/dL (1.6-2.6); Osmolality,Calculated 299 (280-300); Potassium 3.6 mEq/L (3.5-5.1); Sodium 142 mEq/L (136-145); eGFR For African Americans > 60 (> 60); eGFR For Non-African Americans > 60 (> 60)
[2020-09-28] MEDS: Pantoprazole 40 MG VIAL IVP SCH ×2 (05:14→17:11)
[2020-09-28] MEDS: Piperacillin/Tazobactam 3.375 GM in 0.9 % Sodium Chloride Mini Bag 100 ML IVPB SCH ×3 (05:15→20:24)
[2020-09-28] MEDS ORDERED: Magnesium Sulfate 1 GM/102 ML PIGGYBACK IVPB ONE (06:56)
[2020-09-28] MEDS ORDERED: Calcium Gluconate 1gm/50mL 1 GM/50 ML BAG IVPB ONE (06:56)
[2020-09-28] MEDS: Nicotine 14 MG PATCH.TD24 TD SCH (07:17)
[2020-09-28] MEDS: Folic Acid 1 MG TABLET PO SCH (07:43)
[2020-09-28] MEDS: Cyanocobalamin (B-12) 1,000 MCG TABLET PO SCH (07:44)
[2020-09-28] MEDS: Methadone Oral Concentrate 50 MG/5 ML UDC PO SCH (09:10)
[2020-09-28] MEDS: Acetaminophen IV 1,000 MG/100 ML BAG IVPB SCH ×3 (10:55→23:46)
[2020-09-28] MEDS: FentaNYL (PF) 2,500 MCG/50 ML IV.SOLN IVC SCH (12:55)
[2020-09-28] MEDS: Dexmedetomidine HCl 400 MCG/100 ML MLS IVC SCH (13:17)
[2020-09-28] MEDS ORDERED: Clinimix E 5%-15% SOLUTION 2,000 ML with MVI, adult with vitamin K 10 ML IVC SCH (17:00)
[2020-09-29] MEDS: *HR* HYDROmorphone 2 MG/ML SYRINGE IVP PRN ×6 (02:13→20:39)
[2020-09-29] MEDS: Insulin LISPRO 300 UNITS/3 ML VIAL SUBQ SCH ×6 (03:42→20:43)
[2020-09-29 03:50] LABS: Basophils % 0.5 %; Eosinophils # 0.2 K/mcL (0.0-0.6); Eosinophils % 3.8 %; Hematocrit 27.5 % (37.5-50.1); Hemoglobin 8.8 g/dL (12.9-16.9); Immature Granulocytes % 0.5 % (0-4); Lymphocytes # 1.7 K/mcL (0.6-4.6); Mean Corpuscular Hemoglobin 29.5 pg (28.0-33.3); Mean Corpuscular Volume 92.3 fL (83.0-100.0); Mean Platelet Volume 10.5 fL (9.4-12.4); Monocytes # 0.5 K/mcL (0.0-1.3); Neutrophils # 3.3 K/mcL (1.6-8.9); Platelet Count 147 K/mcL (140-400); Red Blood Count 2.98 M/mcL (4.19-5.50); Red Cell Distribution Width 13.9 % (11.5-14.5); Segmented Neutrophils % 57.2 %; White Blood Count 5.7 K/mcL (4.3-11.1)
[2020-09-29 04:06] LABS: INR 1.4; Prothrombin Time 15.7 Seconds (9.4-12.1)
[2020-09-29 04:09] LABS: Alanine Aminotransferase 8 Units/L (7-52); Albumin 2.8 g/dL (3.5-5.7); Albumin/Globulin Ratio 0.9 (1.1-2.2); Alkaline Phosphatase 36 Units/L (34-104); Aspartate Amino Transferase 10 Units/L (13-39); BUN/Creatinine Ratio 17 (6-26); Bilirubin,Direct 0.1 mg/dL (0.0-0.2); Bilirubin,Indirect 0.3 mg/dL (0.0-1.0); Bilirubin,Total 0.4 mg/dL (0.3-1.0); Blood Urea Nitrogen 18 mg/dL (8-23); Calcium 8.6 mg/dL (8.6-10.3); Carbon Dioxide 28 mEq/L (23-29); Chloride 110 mEq/L (98-107); Glucose 160 mg/dL (70-105); Magnesium 2.1 mg/dL (1.6-2.6); Osmolality,Calculated 299 (280-300); Phosphorous 3.1 mg/dL (2.7-4.5); Potassium 3.9 mEq/L (3.5-5.1); Sodium 142 mEq/L (136-145); Total Protein 5.8 g/dL (6.4-8.9); eGFR For African Americans > 60 (> 60); eGFR For Non-African Americans > 60 (> 60)
[2020-09-29] MEDS: Piperacillin/Tazobactam 3.375 GM in 0.9 % Sodium Chloride Mini Bag 100 ML IVPB SCH ×3 (04:14→20:40)
[2020-09-29] MEDS: Acetaminophen IV 1,000 MG/100 ML BAG IVPB SCH ×2 (05:13→10:41)
[2020-09-29] MEDS: Pantoprazole 40 MG VIAL IVP SCH (05:15)
[2020-09-29] MEDS: Nicotine 14 MG PATCH.TD24 TD SCH (08:04)
[2020-09-29] MEDS: Dexmedetomidine HCl 400 MCG/100 ML MLS IVC SCH (08:05)
[2020-09-29] MEDS: Cyanocobalamin (B-12) 1,000 MCG TABLET PO SCH (08:05)
[2020-09-29] MEDS: Folic Acid 1 MG TABLET PO SCH (08:05)
[2020-09-29] MEDS: Methadone Oral Concentrate 50 MG/5 ML UDC PO SCH ×2 (08:05→14:02)
[2020-09-29] MEDS ORDERED: *HR* HYDROmorphone 2 MG/ML SYRINGE IVP PRN (15:48)
[2020-09-29] MEDS ORDERED: *HR* Dextrose 50 % in Water (Vial) 50 ML VIAL IVP PRN (15:57)
[2020-09-29] MEDS ORDERED: D10% in Water 500 ML IVC PRN (15:57)
[2020-09-29] MEDS ORDERED: Chloraseptic Spray 177 ML BOTTLE MM PRN (15:57)
[2020-09-29] MEDS ORDERED: Naloxone 0.4 MG/ML INJ IVP PRN (15:57)
[2020-09-29] MEDS ORDERED: Artificial Tears SOLN 15 ML BOTTLE BOTH EYES PRN (15:57)
[2020-09-29] MEDS ORDERED: Clinimix E 5%-15% SOLUTION 2,000 ML with MVI, adult with vitamin K 10 ML IVC SCH ×3 (15:57→17:00)
[2020-09-29] MEDS ORDERED: Dextrose Gel 15 GM/37.5 ML TUBE PO PRN ×2 (15:57)
[2020-09-29] MEDS ORDERED: Perflutren Lipid Microsphere 1.3 ML in 0.9 % Sodium Chloride 8.7 ML IVP PRN (15:57)
[2020-09-29] MEDS ORDERED: D5% in Water 1,000 ML IVC PRN (15:57)
[2020-09-29] MEDS: Ondansetron 4 MG/2 ML VIAL IVP PRN (22:11)
[2020-09-30] MEDS: Insulin LISPRO 300 UNITS/3 ML VIAL SUBQ SCH ×7 (00:14→23:56)
[2020-09-30] MEDS: *HR* HYDROmorphone 2 MG/ML SYRINGE IVP PRN ×6 (00:14→22:02)
[2020-09-30 04:22] LABS: Basophils % 0.5 %; Eosinophils # 0.2 K/mcL (0.0-0.6); Eosinophils % 3.6 %; Hematocrit 28.1 % (37.5-50.1); Hemoglobin 8.9 g/dL (12.9-16.9); Immature Granulocytes % 0.5 % (0-4); Lymphocytes # 1.7 K/mcL (0.6-4.6); Lymphocytes % 29.4 %; Mean Corpuscular HGB Conc 31.7 g/dL (31.6-35.5); Mean Corpuscular Hemoglobin 29.3 pg (28.0-33.3); Mean Corpuscular Volume 92.4 fL (83.0-100.0); Mean Platelet Volume 10.6 fL (9.4-12.4); Monocytes # 0.5 K/mcL (0.0-1.3); Monocytes % 8.7 %; Neutrophils # 3.4 K/mcL (1.6-8.9); Platelet Count 174 K/mcL (140-400); Red Blood Count 3.04 M/mcL (4.19-5.50); Red Cell Distribution Width 13.8 % (11.5-14.5); Segmented Neutrophils % 57.3 %; White Blood Count 5.9 K/mcL (4.3-11.1)
[2020-09-30] MEDS: Piperacillin/Tazobactam 3.375 GM in 0.9 % Sodium Chloride Mini Bag 100 ML IVPB SCH ×3 (04:28→20:18)
[2020-09-30 04:41] LABS: BUN/Creatinine Ratio 21 (6-26); Blood Urea Nitrogen 20 mg/dL (8-23); Calcium 8.4 mg/dL (8.6-10.3); Carbon Dioxide 25 mEq/L (23-29); Chloride 110 mEq/L (98-107); Glucose 191 mg/dL (70-105); Osmolality,Calculated 296 (280-300); Phosphorous 2.9 mg/dL (2.7-4.5); Potassium 4.4 mEq/L (3.5-5.1); Sodium 139 mEq/L (136-145); eGFR For African Americans > 60 (> 60); eGFR For Non-African Americans > 60 (> 60)
[2020-09-30] MEDS: Methadone Oral Concentrate 50 MG/5 ML UDC PO SCH (07:56)
[2020-09-30] MEDS: Nicotine 14 MG PATCH.TD24 TD SCH (08:05)
[2020-09-30] MEDS: Cyanocobalamin (B-12) 1,000 MCG TABLET PO SCH (08:06)
[2020-09-30] MEDS: Folic Acid 1 MG TABLET PO SCH (08:06)
[2020-09-30] MEDS: Acetaminophen IV 1,000 MG/100 ML BAG IVPB SCH ×3 (08:38→20:19)
[2020-09-30] MEDS ORDERED: Methadone Oral Concentrate 50 MG/5 ML UDC PO SCH (09:00)
[2020-09-30] MEDS: Ketorolac 30 MG/ML VIAL IVP SCH ×3 (11:09→23:45)
[2020-09-30] MEDS ORDERED: Clinimix E 5%-20% SOLUTION 2,000 ML with MVI, adult with vitamin K 10 ML IVC SCH (17:00)
[2020-10-01] MEDS: *HR* HYDROmorphone (PF) 1 MG/ML SYRINGE IVP PRN ×2 (00:41→05:57)
[2020-10-01] MEDS: Acetaminophen IV 1,000 MG/100 ML BAG IVPB SCH ×2 (03:00→07:52)
[2020-10-01] MEDS: *HR* HYDROmorphone 2 MG/ML SYRINGE IVP PRN ×5 (03:09→20:03)
[2020-10-01 03:36] LABS: BUN/Creatinine Ratio 23 (6-26); Blood Urea Nitrogen 25 mg/dL (8-23); Calcium 8.5 mg/dL (8.6-10.3); Carbon Dioxide 24 mEq/L (23-29); Chloride 111 mEq/L (98-107); Glucose 178 mg/dL (70-105); Magnesium 2.1 mg/dL (1.6-2.6); Osmolality,Calculated 299 (280-300); Phosphorous 2.7 mg/dL (2.7-4.5); Potassium 4.2 mEq/L (3.5-5.1); Sodium 140 mEq/L (136-145); eGFR For African Americans > 60 (> 60); eGFR For Non-African Americans > 60 (> 60)
[2020-10-01] MEDS: Piperacillin/Tazobactam 3.375 GM in 0.9 % Sodium Chloride Mini Bag 100 ML IVPB SCH ×3 (05:39→19:53)
[2020-10-01] MEDS: Ketorolac 30 MG/ML VIAL IVP SCH ×2 (05:40→11:29)
[2020-10-01] MEDS: Insulin LISPRO 300 UNITS/3 ML VIAL SUBQ SCH ×6 (05:53→23:32)
[2020-10-01] MEDS: Methadone Oral Concentrate 50 MG/5 ML UDC PO SCH (07:49)
[2020-10-01] MEDS: Nicotine 14 MG PATCH.TD24 TD SCH (07:49)
[2020-10-01] MEDS: Folic Acid 1 MG TABLET PO SCH (07:50)
[2020-10-01] MEDS: Cyanocobalamin (B-12) 1,000 MCG TABLET PO SCH (07:50)
[2020-10-01] MEDS: Gabapentin 300 MG CAPSULE PO SCH ×3 (11:29→19:49)
[2020-10-01] MEDS ORDERED: Clinimix E 5%-20% SOLUTION 2,000 ML with MVI, adult with vitamin K 10 ML IVC SCH (17:00)
[2020-10-01] MEDS: Ondansetron 4 MG/2 ML VIAL IVP PRN (19:50)
[2020-10-02] MEDS: *HR* HYDROmorphone 2 MG/ML SYRINGE IVP PRN ×4 (00:30→17:02)
[2020-10-02] MEDS: Piperacillin/Tazobactam 3.375 GM in 0.9 % Sodium Chloride Mini Bag 100 ML IVPB SCH ×3 (04:35→20:44)
[2020-10-02] MEDS: Insulin LISPRO 300 UNITS/3 ML VIAL SUBQ SCH ×6 (04:36→23:52)
[2020-10-02 05:06] LABS: Basophils % 0.6 %; Eosinophils # 0.2 K/mcL (0.0-0.6); Eosinophils % 3.2 %; Hematocrit 26.4 % (37.5-50.1); Hemoglobin 8.3 g/dL (12.9-16.9); Immature Granulocytes % 0.9 % (0-4); Mean Corpuscular HGB Conc 31.4 g/dL (31.6-35.5); Mean Corpuscular Volume 92.3 fL (83.0-100.0); Mean Platelet Volume 10.1 fL (9.4-12.4); Monocytes # 0.5 K/mcL (0.0-1.3); Monocytes % 8.2 %; Neutrophils # 3.6 K/mcL (1.6-8.9); Platelet Count 196 K/mcL (140-400); Red Blood Count 2.86 M/mcL (4.19-5.50); Red Cell Distribution Width 13.9 % (11.5-14.5); Segmented Neutrophils % 56.1 %; White Blood Count 6.3 K/mcL (4.3-11.1)
[2020-10-02 05:25] LABS: BUN/Creatinine Ratio 23 (6-26); Blood Urea Nitrogen 27 mg/dL (8-23); Calcium 8.4 mg/dL (8.6-10.3); Carbon Dioxide 24 mEq/L (23-29); Chloride 111 mEq/L (98-107); Glucose 170 mg/dL (70-105); Magnesium 2.2 mg/dL (1.6-2.6); Osmolality,Calculated 297 (280-300); Potassium 4.7 mEq/L (3.5-5.1); Sodium 139 mEq/L (136-145); eGFR For African Americans > 60 (> 60); eGFR For Non-African Americans > 60 (> 60)
[2020-10-02] MEDS: Gabapentin 300 MG CAPSULE PO SCH ×3 (07:47→20:44)
[2020-10-02] MEDS: Folic Acid 1 MG TABLET PO SCH (07:47)
[2020-10-02] MEDS: Cyanocobalamin (B-12) 1,000 MCG TABLET PO SCH (07:48)
[2020-10-02] MEDS: Nicotine 14 MG PATCH.TD24 TD SCH (07:48)
[2020-10-02] MEDS: Methadone Oral Concentrate 50 MG/5 ML UDC PO SCH (07:48)
[2020-10-02] MEDS ORDERED: Clinimix E 5%-20% SOLUTION 2,000 ML with MVI, adult with vitamin K 10 ML IVC SCH (17:00)
[2020-10-02] MEDS ORDERED: Ketorolac 30 MG/ML VIAL IVP PRN (17:33)
[2020-10-02] MEDS ORDERED: *HR* HYDROmorphone 2 MG/ML SYRINGE IVP PRN (17:37)
[2020-10-02] MEDS: *HR* Heparin 5,000 UNIT/ML VIAL SQ SCH (18:31)
[2020-10-02] MEDS: Ketorolac 30 MG/ML VIAL IVP SCH ×2 (18:31→23:56)
[2020-10-02] MEDS: Metoclopramide 10 MG/2 ML VIAL IVP SCH ×2 (18:32→23:55)
[2020-10-02] MEDS: Acetaminophen IV 1,000 MG/100 ML BAG IVPB SCH ×2 (19:46→23:52)
[2020-10-03] MEDS: Piperacillin/Tazobactam 3.375 GM in 0.9 % Sodium Chloride Mini Bag 100 ML IVPB SCH ×3 (04:36→20:36)
[2020-10-03 04:53] LABS: Basophils % 0.5 %; Eosinophils # 0.2 K/mcL (0.0-0.6); Eosinophils % 3.3 %; Hematocrit 24.5 % (37.5-50.1); Hemoglobin 7.9 g/dL (12.9-16.9); Immature Granulocytes % 0.9 % (0-4); Lymphocytes # 2.2 K/mcL (0.6-4.6); Lymphocytes % 37.1 %; Mean Corpuscular HGB Conc 32.2 g/dL (31.6-35.5); Mean Corpuscular Hemoglobin 29.7 pg (28.0-33.3); Mean Corpuscular Volume 92.1 fL (83.0-100.0); Mean Platelet Volume 10.1 fL (9.4-12.4); Monocytes # 0.5 K/mcL (0.0-1.3); Monocytes % 8.8 %; Neutrophils # 2.9 K/mcL (1.6-8.9); Platelet Count 199 K/mcL (140-400); Red Blood Count 2.66 M/mcL (4.19-5.50); Red Cell Distribution Width 14.2 % (11.5-14.5); Segmented Neutrophils % 49.4 %; White Blood Count 5.8 K/mcL (4.3-11.1)
[2020-10-03] MEDS: Insulin LISPRO 300 UNITS/3 ML VIAL SUBQ SCH ×5 (05:11→20:38)
[2020-10-03 05:12] LABS: BUN/Creatinine Ratio 21 (6-26); Blood Urea Nitrogen 26 mg/dL (8-23); Calcium 8.1 mg/dL (8.6-10.3); Carbon Dioxide 23 mEq/L (23-29); Chloride 110 mEq/L (98-107); Glucose 160 mg/dL (70-105); Magnesium 2.2 mg/dL (1.6-2.6); Osmolality,Calculated 294 (280-300); Phosphorous 4.4 mg/dL (2.7-4.5); Potassium 4.2 mEq/L (3.5-5.1); Sodium 138 mEq/L (136-145); eGFR For African Americans > 60 (> 60); eGFR For Non-African Americans 59 (> 60)
[2020-10-03] MEDS: *HR* Heparin 5,000 UNIT/ML VIAL SQ SCH ×2 (05:13→17:01)
[2020-10-03 05:17] LABS: Platelet Estimate Normal (Normal)
[2020-10-03] MEDS: Metoclopramide 10 MG/2 ML VIAL IVP SCH ×3 (05:19→17:01)
[2020-10-03] MEDS: Acetaminophen IV 1,000 MG/100 ML BAG IVPB SCH ×2 (05:21→12:03)
[2020-10-03] MEDS: Ketorolac 30 MG/ML VIAL IVP SCH ×2 (05:23→12:04)
[2020-10-03] MEDS ORDERED: *HR* HYDROmorphone 2 MG/ML SYRINGE IVP PRN (08:16)
[2020-10-03] MEDS: Nicotine 14 MG PATCH.TD24 TD SCH (08:32)
[2020-10-03] MEDS: Cyanocobalamin (B-12) 1,000 MCG TABLET PO SCH (08:33)
[2020-10-03] MEDS: Gabapentin 300 MG CAPSULE PO SCH (08:33)
[2020-10-03] MEDS: Folic Acid 1 MG TABLET PO SCH (08:33)
[2020-10-03] MEDS: Furosemide 40 MG TABLET PO SCH (11:56)
[2020-10-03] MEDS ORDERED: *HR* HYDROmorphone (PF) 1 MG/ML SYRINGE IVP PRN ×2 (11:59→21:00)
[2020-10-03] MEDS ORDERED: *HR* HYDROmorphone PCA *PREMADE* 20 MG/1MG/ML (20mL) PCA VIAL IVC PRN (12:14)
[2020-10-03] MEDS: methocarbamoL 500 MG TABLET PO SCH (12:53)
[2020-10-03] MEDS: Methadone Oral Concentrate 50 MG/5 ML UDC PO SCH (14:52)
[2020-10-03] MEDS ORDERED: NON-FORMULARY MEDICATION 1 EACH EACH (Pregabalin [Lyrica] 150 MG Capsule) PO SCH (15:00)
[2020-10-03] MEDS ORDERED: Pregabalin 75 MG CAPSULE PO SCH (15:00)
[2020-10-03] MEDS: *HR* HYDROmorphone (PF) 1 MG/ML SYRINGE IVP PRN (15:53)
[2020-10-03] MEDS ORDERED: Clinimix E 5%-20% SOLUTION 2,000 ML with MVI, adult with vitamin K 10 ML IVC SCH (17:00)
[2020-10-03] MEDS: Lactobacillus 1 EACH CAP.SPRINK PO SCH (21:51)
[2020-10-04] MEDS: Insulin LISPRO 300 UNITS/3 ML VIAL SUBQ SCH ×6 (00:58→20:33)
[2020-10-04] MEDS: Metoclopramide 10 MG/2 ML VIAL IVP SCH ×3 (00:58→12:23)
[2020-10-04] MEDS ORDERED: Acetaminophen IV 1,000 MG/100 ML BAG IVPB ONE (02:15)
[2020-10-04] MEDS: *HR* HYDROmorphone (PF) 1 MG/ML SYRINGE IVP PRN (04:28)
[2020-10-04 04:55] LABS: Basophils % 0.3 %; Eosinophils # 0.1 K/mcL (0.0-0.6); Eosinophils % 2.4 %; Hematocrit 25.6 % (37.5-50.1); Hemoglobin 8.3 g/dL (12.9-16.9); Lymphocytes # 1.9 K/mcL (0.6-4.6); Lymphocytes % 32.2 %; Mean Corpuscular HGB Conc 32.4 g/dL (31.6-35.5); Mean Corpuscular Hemoglobin 30.2 pg (28.0-33.3); Mean Corpuscular Volume 93.1 fL (83.0-100.0); Mean Platelet Volume 10.1 fL (9.4-12.4); Monocytes # 0.5 K/mcL (0.0-1.3); Monocytes % 8.6 %; Neutrophils # 3.3 K/mcL (1.6-8.9); Platelet Count 219 K/mcL (140-400); Red Blood Count 2.75 M/mcL (4.19-5.50); Red Cell Distribution Width 14.2 % (11.5-14.5); Segmented Neutrophils % 55.5 %; White Blood Count 5.9 K/mcL (4.3-11.1)
[2020-10-04 05:13] LABS: BUN/Creatinine Ratio 23 (6-26); Blood Urea Nitrogen 24 mg/dL (8-23); Calcium 8.2 mg/dL (8.6-10.3); Carbon Dioxide 24 mEq/L (23-29); Chloride 106 mEq/L (98-107); Glucose 193 mg/dL (70-105); Osmolality,Calculated 287 (280-300); Potassium 4.4 mEq/L (3.5-5.1); Sodium 134 mEq/L (136-145); eGFR For African Americans > 60 (> 60); eGFR For Non-African Americans > 60 (> 60)
[2020-10-04 05:14] LABS: Magnesium 1.9 mg/dL (1.6-2.6)
[2020-10-04] MEDS: *HR* Heparin 5,000 UNIT/ML VIAL SQ SCH ×2 (06:06→16:52)
[2020-10-04] MEDS: Piperacillin/Tazobactam 3.375 GM in 0.9 % Sodium Chloride Mini Bag 100 ML IVPB SCH ×3 (07:15→21:03)
[2020-10-04] MEDS: Folic Acid 1 MG TABLET PO SCH (08:35)
[2020-10-04] MEDS: Lactobacillus 1 EACH CAP.SPRINK PO SCH (08:35)
[2020-10-04] MEDS: Cyanocobalamin (B-12) 1,000 MCG TABLET PO SCH (08:35)
[2020-10-04] MEDS: methocarbamoL 500 MG TABLET PO SCH ×2 (08:35→16:50)
[2020-10-04] MEDS: Methadone Oral Concentrate 50 MG/5 ML UDC PO SCH (08:38)
[2020-10-04] MEDS: Nicotine 14 MG PATCH.TD24 TD SCH (08:39)
[2020-10-04] MEDS: Furosemide 40 MG TABLET PO SCH (08:43)
[2020-10-04] MEDS ORDERED: Furosemide 40 MG TABLET PO SCH (09:00)
[2020-10-04] MEDS: *HR* HYDROmorphone 2 MG TABLET PO PRN ×2 (11:13→18:35)
[2020-10-04 14:34] LABS: INR 1.3
[2020-10-05] MEDS: *HR* HYDROmorphone 2 MG TABLET PO PRN ×4 (00:43→20:27)
[2020-10-05] MEDS: Insulin LISPRO 300 UNITS/3 ML VIAL SUBQ SCH ×7 (00:54→21:31)
[2020-10-05] MEDS: Piperacillin/Tazobactam 3.375 GM in 0.9 % Sodium Chloride Mini Bag 100 ML IVPB SCH ×2 (05:02→11:52)
[2020-10-05] MEDS: *HR* Heparin 5,000 UNIT/ML VIAL SQ SCH ×2 (05:30→17:53)
[2020-10-05] MEDS: Nicotine 14 MG PATCH.TD24 TD SCH (07:59)
[2020-10-05] MEDS: Cyanocobalamin (B-12) 1,000 MCG TABLET PO SCH (08:01)
[2020-10-05] MEDS: Lactobacillus 1 EACH CAP.SPRINK PO SCH (08:01)
[2020-10-05] MEDS: Aspirin 81 MG TAB.CHEW PO SCH (08:01)
[2020-10-05] MEDS: Furosemide 40 MG TABLET PO SCH (08:01)
[2020-10-05] MEDS: methocarbamoL 500 MG TABLET PO SCH ×2 (08:01→17:53)
[2020-10-05] MEDS: Folic Acid 1 MG TABLET PO SCH (08:01)
[2020-10-05] MEDS: Methadone Oral Concentrate 50 MG/5 ML UDC PO SCH (08:02)
[2020-10-06] MEDS: *HR* HYDROmorphone 2 MG TABLET PO PRN ×4 (02:30→21:42)
[2020-10-06 02:51] LABS: Hematocrit 27.4 % (37.5-50.1); Hemoglobin 8.8 g/dL (12.9-16.9); Mean Corpuscular HGB Conc 32.1 g/dL (31.6-35.5); Mean Corpuscular Hemoglobin 29.4 pg (28.0-33.3); Mean Corpuscular Volume 91.6 fL (83.0-100.0); Mean Platelet Volume 9.9 fL (9.4-12.4); Platelet Count 261 K/mcL (140-400); Red Blood Count 2.99 M/mcL (4.19-5.50); Red Cell Distribution Width 14.6 % (11.5-14.5); White Blood Count 6.2 K/mcL (4.3-11.1)
[2020-10-06 03:11] LABS: BUN/Creatinine Ratio 17 (6-26); Blood Urea Nitrogen 20 mg/dL (8-23); Calcium 8.9 mg/dL (8.6-10.3); Carbon Dioxide 26 mEq/L (23-29); Chloride 104 mEq/L (98-107); Glucose 91 mg/dL (70-105); Osmolality,Calculated 286 (280-300); Potassium 4.3 mEq/L (3.5-5.1); Sodium 137 mEq/L (136-145); eGFR For African Americans > 60 (> 60); eGFR For Non-African Americans > 60 (> 60)
[2020-10-06] MEDS: *HR* Heparin 5,000 UNIT/ML VIAL SQ SCH ×2 (05:27→17:34)
[2020-10-06] MEDS: Insulin LISPRO 300 UNITS/3 ML VIAL SUBQ SCH ×4 (08:52→20:24)
[2020-10-06] MEDS: Furosemide 40 MG TABLET PO SCH (09:01)
[2020-10-06] MEDS: Aspirin 81 MG TAB.CHEW PO SCH (09:02)
[2020-10-06] MEDS: Folic Acid 1 MG TABLET PO SCH (09:02)
[2020-10-06] MEDS: Lactobacillus 1 EACH CAP.SPRINK PO SCH (09:02)
[2020-10-06] MEDS: Cyanocobalamin (B-12) 1,000 MCG TABLET PO SCH (09:02)
[2020-10-06] MEDS: Methadone Oral Concentrate 50 MG/5 ML UDC PO SCH (09:02)
[2020-10-06] MEDS: methocarbamoL 500 MG TABLET PO SCH ×2 (09:02→17:34)
[2020-10-06] MEDS: Nicotine 14 MG PATCH.TD24 TD SCH (09:03)
[2020-10-06 13:49] LABS: % Iron Saturation 19 % (20-55); Iron 40 mcg/dL (65-175); Transferrin 152 mg/dL (203-362)
[2020-10-06 14:21] LABS: Folate > 22.3 ng/mL (3.0-16.0); Vitamin B12 1003 pg/mL (250-1100)
[2020-10-07] MEDS: *HR* HYDROmorphone 2 MG TABLET PO PRN ×3 (04:20→16:22)
[2020-10-07 04:39] LABS: Hematocrit 27.4 % (37.5-50.1); Hemoglobin 8.8 g/dL (12.9-16.9); Mean Corpuscular HGB Conc 32.1 g/dL (31.6-35.5); Mean Corpuscular Hemoglobin 30.1 pg (28.0-33.3); Mean Corpuscular Volume 93.8 fL (83.0-100.0); Mean Platelet Volume 10.4 fL (9.4-12.4); Platelet Count 275 K/mcL (140-400); Red Blood Count 2.92 M/mcL (4.19-5.50); Red Cell Distribution Width 15.2 % (11.5-14.5); White Blood Count 5.8 K/mcL (4.3-11.1)
[2020-10-07 04:53] LABS: Alanine Aminotransferase 11 Units/L (7-52); Albumin 3.2 g/dL (3.5-5.7); Albumin/Globulin Ratio 0.9 (1.1-2.2); Alkaline Phosphatase 69 Units/L (34-104); Aspartate Amino Transferase 12 Units/L (13-39); BUN/Creatinine Ratio 19 (6-26); Bilirubin,Total 0.3 mg/dL (0.3-1.0); Blood Urea Nitrogen 22 mg/dL (8-23); Carbon Dioxide 27 mEq/L (23-29); Chloride 103 mEq/L (98-107); Globulin 3.7 g/dL (2.4-3.5); Glucose 114 mg/dL (70-105); Magnesium 2.2 mg/dL (1.6-2.6); Osmolality,Calculated 288 (280-300); Potassium 4.4 mEq/L (3.5-5.1); Sodium 137 mEq/L (136-145); Total Protein 6.9 g/dL (6.4-8.9); eGFR For African Americans > 60 (> 60); eGFR For Non-African Americans > 60 (> 60)
[2020-10-07] MEDS: *HR* Heparin 5,000 UNIT/ML VIAL SQ SCH ×2 (05:44→17:33)
[2020-10-07] MEDS: Insulin LISPRO 300 UNITS/3 ML VIAL SUBQ SCH ×4 (07:24→20:56)
[2020-10-07] MEDS ORDERED: chlorproMAZINE 25 MG TABLET PO ONE (10:32)
[2020-10-07] MEDS: Methadone Oral Concentrate 50 MG/5 ML UDC PO SCH (10:38)
[2020-10-07] MEDS: Furosemide 40 MG TABLET PO SCH (10:39)
[2020-10-07] MEDS: Aspirin 81 MG TAB.CHEW PO SCH (10:39)
[2020-10-07] MEDS: Lactobacillus 1 EACH CAP.SPRINK PO SCH (10:39)
[2020-10-07] MEDS: methocarbamoL 500 MG TABLET PO SCH ×2 (10:39→16:22)
[2020-10-07] MEDS: Folic Acid 1 MG TABLET PO SCH (10:39)
[2020-10-07] MEDS: Nicotine 14 MG PATCH.TD24 TD SCH (10:40)
[2020-10-07] MEDS: Cyanocobalamin (B-12) 1,000 MCG TABLET PO SCH (10:40)
[2020-10-08] MEDS: *HR* HYDROmorphone 2 MG TABLET PO PRN ×3 (01:18→18:11)
[2020-10-08] MEDS: *HR* Heparin 5,000 UNIT/ML VIAL SQ SCH ×2 (05:31→18:12)
[2020-10-08] MEDS: Insulin LISPRO 300 UNITS/3 ML VIAL SUBQ SCH ×3 (08:45→17:39)
[2020-10-08] MEDS: Cyanocobalamin (B-12) 1,000 MCG TABLET PO SCH (08:54)
[2020-10-08] MEDS: Nicotine 14 MG PATCH.TD24 TD SCH (08:54)
[2020-10-08] MEDS: Folic Acid 1 MG TABLET PO SCH (08:54)
[2020-10-08] MEDS: Lactobacillus 1 EACH CAP.SPRINK PO SCH (08:55)
[2020-10-08] MEDS: Aspirin 81 MG TAB.CHEW PO SCH (08:55)
[2020-10-08] MEDS: methocarbamoL 500 MG TABLET PO SCH ×2 (08:55→18:11)
[2020-10-08] MEDS: Furosemide 40 MG TABLET PO SCH (08:56)
[2020-10-08] MEDS: Methadone Oral Concentrate 50 MG/5 ML UDC PO SCH (08:56)
[2020-10-08 10:16] LABS: Basophils % 0.7 %; Eosinophils # 0.1 K/mcL (0.0-0.6); Eosinophils % 1.9 %; Hemoglobin 9.8 g/dL (12.9-16.9); Immature Granulocytes % 0.7 % (0-4); Lymphocytes # 1.6 K/mcL (0.6-4.6); Lymphocytes % 27.5 %; Mean Corpuscular HGB Conc 32.7 g/dL (31.6-35.5); Mean Corpuscular Hemoglobin 30.3 pg (28.0-33.3); Mean Corpuscular Volume 92.9 fL (83.0-100.0); Mean Platelet Volume 10.3 fL (9.4-12.4); Monocytes # 0.4 K/mcL (0.0-1.3); Monocytes % 6.6 %; Neutrophils # 3.7 K/mcL (1.6-8.9); Platelet Count 306 K/mcL (140-400); Red Blood Count 3.23 M/mcL (4.19-5.50); Red Cell Distribution Width 15.5 % (11.5-14.5); Segmented Neutrophils % 62.6 %; White Blood Count 5.9 K/mcL (4.3-11.1)
[2020-10-08 10:38] LABS: BUN/Creatinine Ratio 17 (6-26); Blood Urea Nitrogen 20 mg/dL (8-23); Calcium 9.3 mg/dL (8.6-10.3); Carbon Dioxide 26 mEq/L (23-29); Chloride 103 mEq/L (98-107); Glucose 120 mg/dL (70-105); Osmolality,Calculated 288 (280-300); Potassium 4.3 mEq/L (3.5-5.1); Sodium 137 mEq/L (136-145); eGFR For African Americans > 60 (> 60); eGFR For Non-African Americans > 60 (> 60)
[2020-10-08] MEDS ORDERED: Pregabalin 75 MG CAPSULE PO SCH (15:00)
[2020-10-08 17:32] LABS: Adenovirus Not Detected (Not Detect); Bordetella Pertussis Not Detected (Not Detect); Chlamydophila pneumoniae Not Detected (Not Detect); Coronavirus 229E Not Detected (Not Detect); Coronavirus HKU1 Not Detected (Not Detect); Coronavirus NL63 Not Detected (Not Detect); Coronavirus OC43 Not Detected (Not Detect); Human Metapneumovirus Not Detected (Not Detect); Human Rhinovirus/Enterovirus Not Detected (Not Detect); Influenza A Subtype 2009 H1 Not Detected (Not Detect); Influenza B Not Detected (Not Detect); Mycoplasma pneumoniae Not Detected (Not Detect); Parainfluenza Virus 1 Not Detected (Not Detect); Parainfluenza Virus 2 Not Detected (Not Detect); Parainfluenza Virus 3 Not Detected (Not Detect); Parainfluenza Virus 4 Not Detected (Not Detect); Respiratory Syncytial Virus Not Detected (Not Detect); SARS-CoV-2 Not Detected (Not Detect)
[2020-10-08 18:44] VITALS: BP 100/65; PULSE 73; TEMP 98; O2SAT 94
== END 2020-10-08 19:42 | DRG 414 ==
LOC: EMEROOARM 10:17 → 2ANU 10:17 → SUATTDRO 16:41 → 2ANU 17:35 → ICNU 09-25 17:39 → 3NENU 09-30 09:40 → 2NNU 10-01 02:25 → 3ANU 10-02 12:56
PROVIDERS: ADMIT Family Medicine; ATTEND General Practice